=== PATIENT | female | born 1935 | race Caucasian/White ===

== ENCOUNTER → 2017-05-27 | Outpatient (CLI) | payer OTHER ==
[~2017-05-27] MED LIST: ADULT MULTI G200 MCG PO; BENTYL20 MG PO; CITRATE OF MAG296 ML PO; DIOVAN HCT 11 TABLET PO; DIOVAN HCT 81 TABLET PO; EVISTA60 MG PO; FISH OIL300 MG PO; FOSAMAX70 MG PO; LEVOTHYROXINE50 MCG PO; LEVOTHYROXINE75 MCG PO; LO-DOSE ASPIRIN81 M1 PO; METRONIDAZOLE500 MG PO; MOXIFLOXACIN H400 MG PO; OMEPRAZOLE20 MG PO; PRILOSEC20 MG PO; SIMVASTATIN20 MG PO; SYNTHROID50 MCG PO; SYNTHROID75 MCG PO
== END | disposition home or self-care (01) ==
LOC: RAD 16:30
DX: K57.30 Diverticulosis of large intestine without perforation or abscess without bleeding (principal); N28.1 Cyst of kidney, acquired; K44.9 Diaphragmatic hernia without obstruction or gangrene
CPT/HCPCS: 74176